=== PATIENT | female | born 1940 | race Caucasian/White ===

== ENCOUNTER 2019-02-04 16:21 | Emergency (ER) | payer MEDICARE ==
[2019-02-04] MEDS ORDERED: NORMAL SALINE 1000 ML 1,000 ML IV ONE ×2 (16:41→20:01)
--- NOTE | 2019-02-04 16:41 | ER Document Report ---
ED General <PRADIP ALAS - Last Filed: 02/05/19 05:24> - General TRAVEL OUTSIDE OF THE [place] IN LAST 30 DAYS: No <DANETTE BURTON - Last Filed: 02/05/19 20:08> - General Chief Complaint: Fall Injury Stated Complaint: FALL/HEAD INJURY Time Seen by Provider: 02/04/19 16:28 Primary Care Provider: YA LOONEY FNP-C [Primary Care Provider] - Follow up as needed - [facility] Notes: Patient is a 78-year-old female with a history of hypertension and type 2 diabetes who presents to the emergency department complaining of near syncopal episode and head injury prior to arrival. Patient states that earlier this week she had diarrhea and she took an antidiarrheal agent 2 days ago for. Patient states that she felt an abdominal pain in her mid abdomen today that was sharp so she tried to go to the bathroom and became lightheaded and dizzy and fell to the side hitting the top of her head off of something in the bathroom. Patient states that she did not have complete loss of consciousness. Patient states that the pain has since improved. Patient states that she has been having a recurrent UTI over the past few weeks, but has not been on any medicine for the past week. She has not had any vaginal discharge, odor, or bleeding. Patient states that aside from a mild headache she feels well. Denies any fever, neck pain, changes in vision/speech/mentation/hearing, URI, sore throat, chest pain, palpitations, cough, shortness of breath, wheeze, dyspnea, nausea/vomiting/diarrhea, urinary retention, dysuria, hematuria, loss of control of bowel or bladder, numbness/tingling, saddle anesthesia, muscle paralysis/weakness, or rash. (DANETTE BURTON) - Related Data Allergies/Adverse Reactions: aspirin [Aspirin] Allergy (Verified 09/19/12 00:17) Sulfa (Sulfonamide Antibiotics) Allergy (Verified 09/19/12 00:44) ciprofloxacin [From Cipro] Adverse Reaction (Verified 10/13/13 01:46) ciprofloxacin HCl [From Cipro] Adverse Reaction (Verified 10/13/13 01:46) Past Medical History - Social History Smoking Status: Never Smoker Family History: DM - Past Medical History Cardiac Medical History: Reports: Hx Hypertension Endocrine Medical History: Reports: Hx Diabetes Mellitus Type 2 GI Medical History: Reports: Hx Gastroesophageal Reflux Disease, Hx Irritable Bowel Past Surgical History: Reports: Hx Cholecystectomy, Hx Hysterectomy, Hx Tonsillectomy. Denies: Hx Pacemaker - Immunizations Hx Diphtheria, Pertussis, Tetanus Vaccination: No Hx Pneumococcal Vaccination: 10/17/59 <DANETTE BURTON - Last Filed: 02/05/19 20:08> Review of Systems - Review of Systems -: Yes All other systems reviewed and negative <DANETTE BURTON - Last Filed: 02/05/19 20:08> Physical Exam <DANETTE BURTON - Last Filed: 02/05/19 20:08> - Vital signs Vitals: Resp Pulse Ox 19 97 02/04/19 16:30 02/04/19 16:30 - Notes Notes: PHYSICAL EXAMINATION: GENERAL: in no acute distress. A&Ox4. Answers questions appropriately. HEAD: + hematoma superior occipital area with tenderness associated. No rodriguez sign. EYES: Pupils equal round and reactive to light, extraocular movements intact, sclera anicteric, conjunctiva are normal. No raccoon eyes/entrapment ENT: EAC clear b/l. TM's intact b/l without erythema, fluid, or perforation. Nares patent and without discharge. oropharynx clear without exudates. No tonsilar hypertrophy or erythema. Moist mucous membranes. No sinus tenderness. No hemotympanum/CSF discharge. NECK: Normal range of motion, supple without lymphadenopathy. No rigidity. + mild midline tenderness. Chest: No flail chest. equal rise/fall. Non-tender LUNGS: Breath sounds clear to auscultation bilaterally and equal. No wheezes rales or rhonchi. HEART: Regular rate and rhythm without murmurs, rubs, gallops. ABDOMEN: Soft, nontender, nondistended abdomen. No guarding, no rebound. No masses appreciated. Normal bowel sounds present. No CVA tenderness bilaterally. No ecchymosis. Femoral pulses equal b/l. Musculoskeletal: Ext's b/l: FROM to passive/active. Strength 5+/5. No deficits noted. No bony tenderness of extremities. Back: FROM to passive/active. Strength 5+/5. No vertebral point tenderness, stepoffs, or deformities. No other bony tenderness or ecchymosis. Extremities: No cyanosis, clubbing, or edema b/l. Peripheral pulses 2+. Capillary refill less than 2 seconds. NEUROLOGICAL: NIH 0. GCS 15. Cranial nerves grossly intact. Normal speech, normal gait. Normal sensory, motor exams. Reflexes 2+ b/l. MADDY's negative. Pronator drift negative. Heel/alonso, finger/nose wnl. PSYCH: Normal mood, normal affect. SKIN: see above. (DANETTE BURTON) Course - Laboratory Result Diagrams: 02/04/19 16:03 02/04/19 16:03 <PRADIP ALAS - Last Filed: 02/05/19 05:24> - Laboratory Result Diagrams: 02/04/19 16:03 02/04/19 16:03 <DANETTE BURTON - Last Filed: 02/05/19 20:08> - Re-evaluation Re-evalutation: Patient given a liter fluid, she was given 1 additional during my observation as well. Heart rate remains in the 120s. Remaining evaluation is unremarkable. Reevaluate patient again at bedside, discussed with her. Heart rate is now 110s, patient is asymptomatic. Discussed with Dr. Palacio. Recommends repeat cardiac enzymes, ambulate the patient. If this is good then patient can home without any additional work-up or intervention. Patient ambulated, started out well and then got tachycardic again. Patient also is urinating frequently. She reports some pain with urination. She denies shortness of breath or chest pain. No significant change in the troponin. Called hospitalist for admission, pending callback. Patient has been monitored for over 2 more hours. Her tachycardia has resolved, I reevaluated her and her heart rate was in the 90s. I reevaluate patient again to check on her, she states that she "is not anxious to get admitted and would like to go home". Because her tachycardia has resolved, she has no current symptoms, work-up does not show any concerning findings at this time, patient will be discharged with follow-up instructions and return precautions. Patient states satisfaction agreement. (PRADIP ALAS) 02/04/19 16:[address] Romero. We will obtain a CTA ab/pelv to make sure there is no aneurysm due to near syncope/abd pain incident. Ct head/neck also ordered along with basic labs. 02/04/19 20:02 Patient is a 78-year-old female who resents to the emergency department with a head injury status post fall and near syncopal episode. Patient has remained mildly tacky throughout her visit. She does appear to be a little weak at this time. All of her imaging is unremarkable and her lab work is acceptable. Chest x-ray and troponin are pending. EKG is at baseline for her. She is nontoxic- appearing and is able to tolerate p.o. Dr. Romero was consulted who also eval'd the patient. We will give another liter of fluids and check her troponin/EKG further evaluate, but patient is currently not having any chest pain/shortness of breath/dyspnea. She does not want anything for pain at this time. If her heart rate does not improve we may consider admission for rehydration. Patient in agreement with plan. Transfer of care to Pradip REYES (DANETTE BURTON) - Vital Signs Vital signs: Temp Pulse Resp BP Pulse Ox 97.7 F 96 17 158/64 H 99 02/05/19 08:52 02/05/19 08:52 02/05/19 08:52 02/05/19 08:52 02/05/19 04:01 - Laboratory Laboratory results interpreted by me: 02/04/19 02/04/19 02/04/19 16:03 16:03 19:01 Hct 35.8 L Sodium 133.3 L Chloride 93 L BUN 25 H Est GFR ( Amer) 59 L Est GFR (Non-Af Amer) 48 L Glucose 251 H POC Glucose 241 H Urine Glucose (UA) Ur Leukocyte Esterase 02/04/19 19:22 Hct Sodium Chloride BUN Est GFR ( Amer) Est GFR (Non-Af Amer) Glucose POC Glucose Urine Glucose (UA) >=500 H Ur Leukocyte Esterase SMALL H Discharge <PRADIP ALAS - Last Filed: 02/05/19 05:24> <DANETTE BURTON - Last Filed: 02/05/19 20:08> - Discharge Clinical Impression: Episode of syncope, Dysuria Condition: Stable Disposition: HOME, SELF-CARE Additional Instructions: The imaging, work-up, and monitoring were reassuring today. Take antibiotic as prescribed for your urinary tract symptoms/infection. Follow close with primary care. Return for any concerning symptoms, see additio nal instructions below. Syncopal Episode Syncope (fainting or near-fainting) can occur from many different health problems. Or it can be a simple fainting spell requiring no treatment. It is safe for you to go home, but further evaluation will likely be necessary. Your work-up may include tests for internal bleeding, heart disease, medication problems, or near-strokes. Tests are not always required, however, depending on the nature of your problem. The warning signs of an impending faint include: dizziness, lightheadedness, nausea, hot flashes, tingling, and weakness. If this happens, lay down and put your feet up, then wait until all of these symptoms have passed before standing up again. If these episodes become recurrent, or if you develop chest pain, heart palpitations, mental confusion, blurred vision, or headache, then you should call the physician, or go to the emergency room. Head Injury Precautions At this point, there is no evidence that your head injury is serious. Observation is necessary, however. Take only clear liquids for the first few hours, unless told otherwise by the doctor. If no pain medication was prescribed, you may take acetaminophen according to the directions on the bottle. Do not take any medication that may alter your level of alertness (unless you've discussed it with the doctor first). Limit activity for the first 24 hours. Bed rest is best. During the first 24 hours, check to see approximately every two to three hours that the patient is easily arousable, responds normally, and can perform common tasks such as walking without difficulty. Contact your doctor or go to the hospital if any of the following things occur: Persistent vomiting, difficulty in arousing the patient, worsening or continued headache, or failure to improve as expected. Head injuries can cause symptoms that persist for a few days or even a few weeks. Prescriptions: Cephalexin Monohydrate [Keflex 500 mg Capsule] 500 mg PO BID #14 capsule Referrals: YA LOONEY, LEVI-C [Primary Care Provider] - Follow up as needed
[2019-02-04 16:47] LABS: ABSOLUTE LYMPHOCYTES (AUTO) 1.4 10^3/uL (0.5-4.7); ABSOLUTE MONOCYTES (AUTO) 0.5 10^3/uL (0.1-1.4); ABSOLUTE NEUT (AUTO) 5.8 10^3/uL (1.7-8.2); BASOPHILS % (AUTO) 0.5 % (0-2); EOSINOPHILS % (AUTO) 0.6 % (0-6); HEMATOCRIT 35.8 % (36.0-47.0); HEMOGLOBIN 12.3 g/dL (12.0-15.5); LYMPHOCYTES % (AUTO) 18.3 % (13-45); MEAN CORPUSCULAR HGB CONC 34.3 g/dL (32.0-36.0); MEAN CORPUSCULAR VOLUME 87 fl (80-97); MONOCYTES % (AUTO) 6.3 % (3-13); PLATELET COUNT 285 10^3/uL (150-450); RED CELL DISTRIBUTION WIDTH 13.6 % (11.5-14.0); SEGMENTED NEUTROPHILS % (AUTO) 74.3 % (42-78); TOTAL CELLS COUNTED % (AUTO) 100 %; WHITE BLOOD COUNT 7.8 10^3/uL (4.0-10.5)
[2019-02-04 16:53] LABS: ALANINE AMINOTRANSFERASE 22 U/L (9-52); ALBUMIN 4.5 g/dL (3.5-5.0); ALKALINE PHOSPHATASE 102 U/L (38-126); ANION GAP 12 (5-19); ASPARTATE AMINO TRANSFERASE 20 U/L (14-36); BILIRUBIN,DIRECT 0.2 mg/dL (0.0-0.4); BILIRUBIN,TOTAL 0.3 mg/dL (0.2-1.3); BLOOD UREA NITROGEN 25 mg/dL (7-20); CALCIUM 10.1 mg/dL (8.4-10.2); CARBON DIOXIDE 28 mmol/L (22-30); CHLORIDE 93 mmol/L (98-107); GLUCOSE 251 mg/dL (75-110); LIPASE 288.5 U/L (23-300); POTASSIUM 4.6 mmol/L (3.6-5.0); SODIUM 133.3 mmol/L (137-145); TOTAL PROTEIN 7.3 g/dL (6.3-8.2)
[2019-02-04 16:54] LABS: INTERNATIONAL RATION (INR) 0.91; PROTHROMBIN TIME 12.7 SEC (11.4-15.4)
[2019-02-04 16:55] LABS: PARTIAL THROMBOPLASTIN TIME 26.6 SEC (23.5-35.8)
--- NOTE | 2019-02-04 19:14 | RADIOLOGY REPORT (SQ) ---
EXAM DESCRIPTION: CT HEAD WITHOUT COMPLETED DATE/TIME: 02/04/2019 6:59 pm REASON FOR STUDY: bed 4 s/p fall per dr padilla COMPARISON: 01/09/2016 CT brain TECHNIQUE: Axial images acquired through the brain without intravenous contrast. Images reviewed wi th bone, brain and subdural windows. Additional sagittal and coronal reconstructions were generated. Images stored on PACS. All CT scanners at this facility use dose modulation, iterative reconstruction, and/or weight based d osing when appropriate to reduce radiation dose to as low as reasonably achievable (ALARA). [facility]: Dose Right [facility]: CareDose [facility]: Dose Right [facility]: Teradose 4D [facility]: Smart trgt.us RADIATION DOSE: CT Rad equipment meets quality standard of care and radiation dose reduction techniq ues were employed. CTDIvol: 53.2 mGy. DLP: 1017 mGy-cm. mGy. LIMITATIONS: None. FINDINGS: VENTRICLES: Normal size and contour. CEREBRUM: No masses. No hemorrhage. No midline shift. No evidence for acute infarction. There is s potty low attenuation in the deep bifrontal and biparietal periventricular white matter from chronic small vessel disease CEREBELLUM: No masses. No hemorrhage. No alteration of density. No evidence for acute infarction. EXTRAAXIAL SPACES: No fluid collections. No masses. ORBITS AND GLOBE: No intra- or extraconal masses. Post cataract surgery bilaterally CALVARIUM: No fracture. PARANASAL SINUSES: No fluid or mucosal thickening. SOFT TISSUES: No mass or hematoma. OTHER: No other significant finding. IMPRESSION: Chronic white matter disease, age-appropriate. No acute findings. EVIDENCE OF ACUTE STROKE: NO. COMMENT: Quality ID # 436: Final reports with documentation of one or more dose reduction techniques (e.g., Automated exposure control, adjustment of the mA and/or kV according to patient size, use of iterative reconstruction technique) TECHNICAL DOCUMENTATION: JOB ID: [id number] [employer]- All Rights Reserved Reading location - IP/workstation name: [email or web address]
--- NOTE | 2019-02-04 19:21 | RADIOLOGY REPORT (SQ) ---
EXAM DESCRIPTION: CT CERVICAL SPINE WITHOUT COMPLETED DATE/TIME: 02/04/2019 6:59 pm REASON FOR STUDY: bed 4 s/p fall per dr padilla COMPARISON: CT brain same date TECHNIQUE: Axial images acquired through the cervical spine without intravenous contrast. Images re viewed with lung, soft tissue and bone windows. Reconstructed coronal and sagittal MPR images review ed. Images stored on PACS. All CT scanners at this facility use dose modulation, iterative reconstruction, and/or weight based d osing when appropriate to reduce radiation dose to as low as reasonably achievable (ALARA). [facility]: Dose Right [facility]: CareDose [facility]: Dose Right [facility]: Teradose 4D [facility]: Smart [employer] RADIATION DOSE: CT Rad equipment meets quality standard of care and radiation dose reduction techniq ues were employed. CTDIvol: 13.3 mGy. DLP: 328 mGy-cm. mGy. LIMITATIONS: None. FINDINGS: ALIGNMENT: Anatomic. MINERALIZATION: Normal. VERTEBRAL BODIES: No fractures or dislocation. DISCS: Multilevel disc space narrowing with osteophytes. FACETS, LATERAL MASSES, POSTERIOR ELEMENTS: Facet arthropathy. No fractures. No dislocation. No ac chirag findings. HARDWARE: None in the spine. VISUALIZED RIBS: No fractures. LUNG APICES AND SOFT TISSUES: No significant or acute findings. OTHER: No other significant finding. IMPRESSION: CHRONIC DEGENERATIVE CHANGES. NO ACUTE FINDINGS. TECHNICAL DOCUMENTATION: JOB ID: [id number] Quality ID # [id number]: Final reports with documentation of one or more dose reduction techniques (e.g., Au tomated exposure control, adjustment of the mA and/or kV according to patient size, use of iterative reconstruction technique) 2010 [employer]- All Rights Reserved Reading location - IP/workstation name: [email or web address]
[2019-02-04 19:38] LABS: APPEARANCE,URINE CLEAR; BILIRUBIN,URINE NEGATIVE (NEGATIVE); COLOR,URINE STRAW; GLUCOSE, URINE >=500 mg/dL (NEGATIVE); KETONES,URINE NEGATIVE (NEGATIVE); LEUKOCYTE ESTERASE,URINE SMALL (NEGATIVE); NITRITE,URINE NEGATIVE (NEGATIVE); PROTEIN,URINE NEGATIVE (NEGATIVE); URINE SPECIFIC GRAVITY 1.023; UROBILINOGEN,URINE NEGATIVE mg/dL (<2.0)
--- NOTE | 2019-02-04 19:43 | RADIOLOGY REPORT (SQ) ---
EXAM DESCRIPTION: CTA ABDOMEN/PELVIS W WO COMPLETED DATE/TIME: 02/04/2019 7:06 pm REASON FOR STUDY: abd pain leading to near syncope COMPARISON: 07/14/2016 TECHNIQUE: CT scan of the abdomen and pelvis performed with intravenous contrast using helical scann ing technique with dynamic intravenous contrast injection. Images reviewed with lung, soft tissue, an d bone windows. Reconstructed coronal and sagittal MPR images reviewed. All images stored on PACS. Advanced 3D imaging as volume rendering, MIPS, SSD performed? yes All CT scanners at this facility use dose modulation, iterative reconstruction, and/or weight based d osing when appropriate to reduce radiation dose to as low as reasonably achievable (ALARA). [facility]: Dose Right [facility]: CareDose [facility]: Dose Right [facility]: Teradose 4D [facility]: [employer] CONTRAST TYPE AND DOSE: contrast/concentration: Isovue 350.00 mg/ml; Total Contrast Delivered: 100.0 ml; Total Saline Delivered: 80.2 ml 100 ML Omnipaque 350- low osmolar. RENAL FUNCTION: BUN 25 CREATININE 1.09 LIMITATIONS: None. FINDINGS: AORTA AND VESSELS: No aneurysm. No dissection. Renal arteries, SMA, celiac without stenosi s. There are few scattered hard and soft plaques throughout the aorta without significant stenosis. LUNG BASES: No significant findings. No nodules or infiltrates. LIVER: Stable 2 cm hypodense lesion in the hilum of the liver. The liver is otherwise unremarkable. SPLEEN: Normal size. No focal lesions. PANCREAS: No masses. No significant calcifications. No adjacent inflammation or peripancreatic fluid collections. Pancreatic duct not dilated. GALLBLADDER: Surgically absent. ADRENAL GLANDS: No significant masses or asymmetry. RIGHT KIDNEY AND URETER: No mass, calculi or urinary tract obstruction. LEFT KIDNEY AND URETER: No mass, calculi or urinary tract obstruction. RETROPERITONEUM: No retroperitoneal adenopathy, hemorrhage or masses. BOWEL AND PERITONEAL CAVITY: No masses or inflammatory changes. No free fluid or peritoneal masses. APPENDIX: Not visualized. ABDOMINAL WALL: No masses. No hernias. BONY STRUCTURES: No significant or acute findings. 3-D IMAGING: Confirms the above findings. OTHER: No other significant finding. IMPRESSION: NO ABDOMINAL AORTIC ANEURYSM, DISSECTION OR SIGNIFICANT STENOSIS. NO ACUTE FINDINGS IN T HE ABDOMEN. TECHNICAL DOCUMENTATION: JOB ID: [id number] Quality ID # [id number]: Final reports with documentation of one or more dose reduction techniques (e.g., Au tomated exposure control, adjustment of the mA and/or kV according to patient size, use of iterative reconstruction technique) 2010 [employer]- All Rights Reserved Reading location - IP/workstation name: [email or web address]
--- NOTE | 2019-02-04 20:33 | RADIOLOGY REPORT (SQ) ---
EXAM DESCRIPTION: XR CHEST 1 VIEW COMPLETED DATE/TME: 02/04/2019 20:01 CLINICAL HISTORY: 78 years Female weakness COMPARISON: 07/12/2016 FINDINGS: The cardiomediastinal silhouette appears unremarkable. No consolidating infiltrates or pleural effusions. No pneumothorax. IMPRESSION: No acute abnormality is identified.
--- NOTE | 2019-02-04 20:48 | EKG REPORT ---
SEVERITY:- ABNORMAL ECG - SINUS TACHYCARDIA RIGHT BUNDLE BRANCH BLOCK : Confirmed by: Aga Gtuierrez MD 04-Feb-2019 20:47:13
[2019-02-05 08:54] VITALS: BP 158/64
== END 2019-02-05 08:52 | disposition home or self-care (01) ==
LOC: ER 16:21
DX: R55 Syncope and collapse (principal); R30.0 Dysuria; R19.7 Diarrhea, unspecified; S09.90XA Unspecified injury of head, initial encounter; R00.0 Tachycardia, unspecified; W01.198A Fall on same level from slipping, tripping and stumbling with subsequent striking against other object, initial encounter; Y92.002 Bathroom of unspecified non-institutional (private) residence as the place of occurrence of the external cause; I10 Essential (primary) hypertension; E11.9 Type 2 diabetes mellitus without complications; Z88.6 Allergy status to analgesic agent; Z88.2 Allergy status to sulfonamides; Z88.3 Allergy status to other anti-infective agents
CPT/HCPCS: 99284; 93005; 96360; 96361; 36415; 87086; 82962; 83690; 83735; 85025; 85610; 85730; 87088; 80053; 81001; 84484; 87186; 71045; 70450; 72125; 74174; 93010; J7030

== ENCOUNTER → 2019-11-10 | Outpatient (CLI) | payer MEDICARE ==
--- NOTE | 2019-11-10 13:13 | RADIOLOGY REPORT (SQ) ---
EXAM DESCRIPTION: L SPINE 2 VIEWS COMPLETED DATE/TIME: 11/10/2019 12:27 pm REASON FOR STUDY: LOW BACK PAIN COMPARISON: CT abdomen pelvis 02/04/2019 NUMBER OF VIEWS: Two views. TECHNIQUE: AP and lateral radiographic images acquired of the lumbar spine. LIMITATIONS: None. FINDINGS: MINERALIZATION: Osteopenic SEGMENTATION: Short ribs/long transverse processes at T12. ALIGNMENT: Minimal grade 1 anterolisthesis of L4 over L5. VERTEBRAE: Maintained height. No fracture or worrisome bone lesion. DISCS: Disc space loss of height at L5-S1 POSTERIOR ELEMENTS: Pedicles and facets are intact. No pars defect or posterior arch defects. Lower lumbar facet arthropathy from L3-4 through L5-S1. HARDWARE: None in the spine. PARASPINAL SOFT TISSUES: Normal. PELVIS: Sclerosis bilateral SI joints OTHER: Clips right upper quadrant post cholecystectomy IMPRESSION: No acute findings TECHNICAL DOCUMENTATION: JOB ID: [id number]- All Rights Reserved Reading location - IP/workstation name: [email or web address]
--- NOTE | 2019-11-10 13:15 | RADIOLOGY REPORT (SQ) ---
EXAM DESCRIPTION: HIP BILATERAL COMPLETED DATE/TIME: 11/10/2019 12:27 pm REASON FOR STUDY: RAIN IN RIGHT HIP COMPARISON: None. NUMBER OF VIEWS: Two views TECHNIQUE: AP pelvis and additional frog-leg view of both hips. LIMITATIONS: None. FINDINGS: MINERALIZATION: Normal. HIPS: No acute fracture or dislocation. No worrisome bone lesions. Mild bilateral hip joint space na rrowing. PELVIS AND SACRUM: No acute fracture or dislocation. No worrisome bone lesions. PUBIS AND ISCHIUM: No acute fracture. LOWER LUMBAR SPINE: No significant findings as visualized. SOFT TISSUES: No findings. OTHER: No other significant finding. IMPRESSION: NEGATIVE STUDY OF THE PELVIS AND HIPS. COMMENT: If the patient is unable to bear weight, consider follow-up CT TECHNICAL DOCUMENTATION: JOB ID: [id number] [employer]- All Rights Reserved Reading location - IP/workstation name: [email or web address]
== END ==
LOC: RAD 11:46
DX: M54.5 Low back pain (principal); M25.551 Pain in right hip; M25.552 Pain in left hip; M47.896 Other spondylosis, lumbar region
CPT/HCPCS: 72100; 73522